=== PATIENT | female | born 2000 | race Caucasian/White ===

== ENCOUNTER 2021-11-13 19:35 | Emergency (ER) | payer OTHER ==
[2021-11-13 19:50] VITALS: BP 115/73; PULSE 80; TEMP 98; BMI 21.7
== END 2021-11-13 22:45 | disposition home or self-care (01) ==
LOC: JERFT 19:35
DX: K08.9 Disorder of teeth and supporting structures, unspecified (principal)
CPT/HCPCS: 99283-25